=== PATIENT | female | born 1990 | race African-American/Black ===

== ENCOUNTER 2016-09-06 13:13 | Emergency (ER) | payer MEDICAID ==
[~2016-09-06] VITALS: Wt 94.0 kg
[~2016-09-06 13:13] MED LIST: ALBU2.5V3 NEB; ALBU8.5H3 INH; PRED50TA PO
[2016-09-06] MEDS ORDERED: IPRATROPIUM (NEB) 0.5 MG/2.5 ML AMP NEB STA (14:59)
[2016-09-06] MEDS ORDERED: ALBUTEROL 0.083% (NEB) 2.5 MG/3 ML AMP NEB STA (14:59)
[2016-09-06] MEDS ORDERED: predniSONE 20 MG TAB PO ONE (15:00)
--- NOTE | 2016-09-06 16:00 | ERD ---
ER Documentation Chief Complaint Date/Time DATE: 09/06/16 TIME: 15:57 Chief Complaint shortness of breath HPI 26 yo female with a history of asthma comes emergency department with shortness of breath and dizziness that started this afternoon. Patient states that this feels like her normal shortness of breath symptoms when her asthma exacerbates. She try to give herself a breathing, this afternoon but she felt very dizzy. She states that she ate a small breakfast this morning. She states that she gave herself a breathing treatment with albuterol and states that the dizziness worsened. Has not had any syncope, chest pain, shortness of breath. Patient states that she does have a history of anemia however she got her blood work checked about 2 weeks ago and she reports that everything was normal. She has not had any injuries, or abnormal bleeding. ROS All systems reviewed and are negative except as per history of present illness. Medications Home Meds Active Scripts Albuterol Sulfate* (Albuterol Sulfate* Neb) 0.083%-3 Ml Neb, 2.5 MG NEB Q4 Y for SHORTNESS OF BREATH, #30 EA Prov:DIANN LUGO PA-C 09/06/16 Prednisone* (Prednisone*) 20 Mg Tab, 40 MG PO DAILY for 4 Days, TAB Prov:DIANN LUGO PA-C 09/06/16 Albuterol Sulfate* (Proair HFA*) 8.5 Gm Hfa.aer.ad, 2 PUFF INH Q4, #1 INHALER Prov:DINESH ROBLES PA-C 06/06/15 Albuterol Sulfate* (Albuterol Sulfate* Neb) 0.083%-3 Ml Neb, 1.25 MG NEB Q3H Y for WHEEZING AND SOB, #30 VIAL Prov:DINESH ROBLES PA-C 06/06/15 Prednisone* (Prednisone*) 50 Mg Tablet, 50 MG PO DAILY for 5 Days, TAB Prov:DINESH ROBLES PA-C 06/06/15 Allergies Allergies: Coded Allergies: No Known Allergy (Unverified , 06/06/15) PMhx/Soc History of Surgery: No Anesthesia Reaction: No Hx Respiratory Disorders: Yes (Asthma) Hx Cardiac Disorders: No Hx Psychiatric Problems: No Hx Alcohol Use: No Hx Substance Use: No Hx Tobacco Use: No Smoking Status: Never smoker Physical Exam Vitals Vital Signs Date Time Temp Pulse Resp B/P Pulse Ox O2 Delivery O2 Flow Rate FiO2 6/12/17 15:13 105 18 99 21 09/06/16 13:17 99.2 105 18 145/76 99 Physical Exam General: Well-developed, well-nourished. The patient appears in no acute distress. HEENT: Head is normocephalic, atraumatic. No scleral icterus. Neck: Supple. Nontender. Lungs: Clear to auscultation. Normal air movement. Heart: Regular rate and rhythm. S1 and S2 are normal. No murmurs, gallops, or rubs. Abdomen: Nondistended. Extremities: No clubbing or cyanosis. Moving extremities x 4. No weakness. Neurologic: Alert and oriented 3. No focal deficits. Normal speech and gait. Cranial nerves II 12 grossly intact. Skin: Normal turgor. No rash or lesions. Results 24 hrs Laboratory Tests Test 09/06/16 15:28 09/06/16 16:23 Bedside Glucose 64mg/dL 92mg/dL Current Medications Medications (Trade) Dose Ordered Sig/Santy Route PRN Reason Start Time Stop Time Status Last Admin Dose Admin Albuterol (Proventil 0.083% (Neb)) 5 mg ONCE STAT NEB 09/06/16 14:59 09/06/16 15:01 DC 09/06/16 15:07 Ipratropium [place] (Atrovent 0.02% (Neb)) 1.5 mg ONCE STAT NEB 09/06/16 14:59 09/06/16 15:01 DC 09/06/16 15:07 Prednisone (Prednisone) 40 mg ONCE ONCE PO 09/06/16 15:00 09/06/16 15:01 DC 09/06/16 15:04 Procedures/MDM ED course: Patient was given a breathing treatment albuterol 5 mg neb, Atrovent 0.5 mg, prednisone 40 mg by mouth. Accu-Chek, blood sugar was 64. She was given juice in the emergency department , repeat Accu-Chek was 92. MDM: 26-year-old female comes in with shortness breath, this appears to be an acute asthma exacerbation, she also has low blood sugar at this time Accu-Chek was 64. She was given juice in the emergency department and reports to be feeling much better. I doubt pulmonary embolus, dissection, acute coronary syndrome, anemia, electrolyte abnormalities, sepsis. Departure Diagnosis: Primary Impression: Asthma Additional Impression: Hypoglycemia Condition: Good DIANN LUGO PA-C Sep 06, 2016 16:00
[2016-09-06] MEDS ORDERED: ALBU2.5V3 NEB (16:08)
[2016-09-06] MEDS ORDERED: PRED20TA PO (16:08)
== END 2016-09-06 17:12 | disposition home or self-care (01) ==
LOC: FTE 13:13
DX: J45.901 Unspecified asthma with (acute) exacerbation (principal); E16.2 Hypoglycemia, unspecified
CPT/HCPCS: 82962; 94644; J7512; Z7610

== ENCOUNTER 2016-12-25 00:10 | Emergency (ER) | payer SELFPAY ==
[~2016-12-25] VITALS: Ht 162.6 cm; Wt 95.0 kg
[~2016-12-25 00:10] MED LIST changes: +PRED20TA PO
[2016-12-25 00:19] VITALS: Ht 162.6 cm; Wt 95.0 kg
--- NOTE | 2016-12-25 01:50 | ERD ---
ER Documentation Chief Complaint Date/Time DATE: 12/25/16 TIME: 01:49 Chief Complaint scaterred body rashes HPI 26-year-old female presents with rash on her bilateral armpits that she has had for 1 week. She states it is very itchy and she states she has been putting hydrocortisone cream but she thinks that made it worse. No fever. No swelling of her lips or tongue. No difficulty breathing. ROS All systems reviewed and are negative except as per history of present illness. Medications Home Meds Active Scripts Albuterol Sulfate* (Albuterol Sulfate* Neb) 0.083%-3 Ml Neb, 2.5 MG NEB Q4 Y for SHORTNESS OF BREATH, #30 EA Prov:DIANN LUGO PA-C 09/06/16 Prednisone* (Prednisone*) 20 Mg Tab, 40 MG PO DAILY for 4 Days, TAB Prov:DIANN LUGO PA-C 09/06/16 Albuterol Sulfate* (Proair HFA*) 8.5 Gm Hfa.aer.ad, 2 PUFF INH Q4, #1 INHALER Prov:DINESH ROBLES PA-C 06/06/15 Albuterol Sulfate* (Albuterol Sulfate* Neb) 0.083%-3 Ml Neb, 1.25 MG NEB Q3H Y for WHEEZING AND SOB, #30 VIAL Prov:DINESH ROBLES PA-C 06/06/15 Prednisone* (Prednisone*) 50 Mg Tablet, 50 MG PO DAILY for 5 Days, TAB Prov:DINESH ROBLES PA-C 06/06/15 Allergies Allergies: Coded Allergies: No Known Allergy (Unverified , 06/06/15) PMhx/Soc History of Surgery: No Anesthesia Reaction: No Hx Respiratory Disorders: Yes (Asthma) Hx Cardiac Disorders: No Hx Psychiatric Problems: No Hx Alcohol Use: No Hx Substance Use: No Hx Tobacco Use: No Smoking Status: Never smoker FmHx Family History: No diabetes Physical Exam Vitals Vital Signs Date Time Temp Pulse Resp B/P Pulse Ox O2 Delivery O2 Flow Rate FiO2 12/25/16 00:19 97.8 95 20 131/81 100 Physical Exam Const: [] Head: Atraumatic Eyes: Normal Conjunctiva ENT: Normal External Ears, Nose and Mouth. Neck: Full range of motion..~ No meningismus. Resp: Clear to auscultation bilaterally Cardio: Regular rate and rhythm, no murmurs Abd: Soft, non tender, non distended. Normal bowel sounds Skin: Bilateral axillary fold have macular papular rash with thickened skin consistent with hives Results 24 hrs Current Medications Medications (Trade) Dose Ordered Sig/Santy Route PRN Reason Start Time Stop Time Status Last Admin Dose Admin Prednisone (Prednisone) 60 mg ONCE ONCE PO 12/25/16 02:00 12/25/16 02:01 Procedures/MDM Patient presents with eczema on her bilateral axillary folds. Her vital signs are normal. She was given a dose of prednisone here and discharged with a short course of prednisone and Benadryl. Patient counseled regarding my diagnostic impression and care plan. Prior to discharge all questions answered. Pt agrees with treatment plan and understands strict return precautions. Pt is instructed to follow up with primary care provider within 24-48 hours. Precautionary instructions provided including instructions to return to the ER if not improving or for any worsening or changing symptoms or concerns. Departure Diagnosis: Primary Impression: Rash Condition: Stable DINESH ROBLES PA-C Dec 25, 2016 01:50
[2016-12-25] MEDS ORDERED: BEN25 PO (01:51)
[2016-12-25] MEDS ORDERED: PRED50TA PO (01:51)
[2016-12-25] MEDS ORDERED: predniSONE 20 MG TAB PO ONE (02:00)
== END 2016-12-25 02:00 | disposition home or self-care (01) ==
LOC: FTE 00:10
DX: R21 Rash and other nonspecific skin eruption (principal); J45.909 Unspecified asthma, uncomplicated
CPT/HCPCS: 99283; J7512

== ENCOUNTER 2016-12-27 17:47 | Emergency (ER) | payer SELFPAY ==
[~2016-12-27] VITALS: Ht 152.4 cm; Wt 80.0 kg
[~2016-12-27 17:47] MED LIST changes: +BEN25 PO
[2016-12-27 17:49] VITALS: Ht 152.4 cm; Wt 80.0 kg
[2016-12-27] MEDS ORDERED: CLOT30CR24 TOP (20:22)
[2016-12-27] MEDS ORDERED: CEPH-443 PO (20:23)
--- NOTE | 2016-12-27 20:39 | ERD ---
ER Documentation Chief Complaint Date/Time DATE: 12/27/16 TIME: 20:36 Chief Complaint RASH X 2 WEEKS HPI This is a 26-year-old female that presents to the ER with a rash for the last 2 weeks. Patient is located under the patient's arms under her breast and is now extending into her back. Patient states that earlier today the rash was losing and that it smells very bad. Rash is very itchy and red. She denies any fevers or chills. Patient Has not traveled anywhere. ROS 12 point review of systems was done, all negative except per HPI. Medications Home Meds Active Scripts Cephalexin* (Keflex*) 500 Mg Capsule, 500 MG PO BID for 7 Days, CAP Prov:СВЕТЛАНА CALVERT 12/27/16 Clotrimazole* (Clotrimazole* AF) 1% - 30 Gm Cream.gm., 1 APPLIC TOP BID for 7 Days, TUB Prov:СВЕТЛАНА CALVERT 12/27/16 Prednisone* (Prednisone*) 50 Mg Tablet, 50 MG PO DAILY, #4 TAB Prov:DINESH ROBLES PA-C 12/25/16 Diphenhydramine Hcl* (Benadryl*) 25 Mg Cap, 25 MG PO Q6, #30 CAP Prov:DINESH ROBLES PA-C 12/25/16 Albuterol Sulfate* (Albuterol Sulfate* Neb) 0.083%-3 Ml Neb, 2.5 MG NEB Q4 Y for SHORTNESS OF BREATH, #30 EA Prov:DIANN LUGO PA-C 09/06/16 Prednisone* (Prednisone*) 20 Mg Tab, 40 MG PO DAILY for 4 Days, TAB Prov:DIANN LUGO PA-C 09/06/16 Albuterol Sulfate* (Proair HFA*) 8.5 Gm Hfa.aer.ad, 2 PUFF INH Q4, #1 INHALER Prov:DINESH ROBLES PA-C 06/06/15 Albuterol Sulfate* (Albuterol Sulfate* Neb) 0.083%-3 Ml Neb, 1.25 MG NEB Q3H Y for WHEEZING AND SOB, #30 VIAL Prov:DINESH ROBLES PA-C 06/06/15 Prednisone* (Prednisone*) 50 Mg Tablet, 50 MG PO DAILY for 5 Days, TAB Prov:DINESH ROBLES PA-C 06/06/15 Allergies Allergies: Coded Allergies: No Known Allergy (Unverified , 06/06/15) PMhx/Soc Medical and Surgical Hx: pt denies Medical Hx History of Surgery: No Anesthesia Reaction: No Hx Neurological Disorder: No Hx Respiratory Disorders: Yes (Asthma) Hx Cardiac Disorders: No Hx Psychiatric Problems: No Hx Miscellaneous Medical Probl: No Hx Alcohol Use: Yes Hx Substance Use: No Hx Tobacco Use: No Smoking Status: Never smoker Physical Exam Vitals Vital Signs Date Time Temp Pulse Resp B/P Pulse Ox O2 Delivery O2 Flow Rate FiO2 12/27/16 17:49 98.2 84 18 148/84 99 Physical Exam GENERAL: The patient is well developed and appropriate for usual state of health , in no apparent distress. HEENT: Atraumatic. Also involvement. CHEST: Clear to auscultation bilaterally. There are no rales, wheezes or rhonchi. HEART: Regular rate and rhythm. No murmurs, clicks, rubs or gallops. NEURO: Alert and oriented. SKIN: beefy Red rash with satellite lesions under arms, breasts and back. Procedures/MDM Differential Diagnosis: dermatitis, allergic urticaria, viral exanthem, insect bite, fungal infection ,viral exanthem, hand foot mouth disease, , impetigo, cellulitis, abscess, gayle laisha syndrome, meningocemia, necrotizing fasciitis, myositis. Clinical suspicicion for necrotizing fasciitis or myositis is low. There are no skip lesions or pain away from the site of the rash. Clinical suspicion for gayle laisha syndrome is low. There is not history new medication use or mucosal involvement. Patient likely has a fungal infection with a superimposed bacterial infection as there was no wheezing seen today. Patient will be sent with clotrimazole with Keflex. She is to follow-up with her primary care doctor within 1-2 days return to ER if symptoms worsen. My medical decision making shared with the patient she understands and agrees with plan. Departure Diagnosis: Primary Impression: Rash Condition: Stable Patient Instructions: Self-Care for Skin Rashes Additional Instructions: Call your primary care doctor TOMORROW for an appointment during the next 1-2 days.See the doctor sooner or return here if your condition worsens before your appointment time. СВЕТЛАНА CALVERT Dec 27, 2016 20:39
== END 2016-12-27 20:45 | disposition home or self-care (01) ==
LOC: FTE 17:47
DX: R21 Rash and other nonspecific skin eruption (principal); J45.909 Unspecified asthma, uncomplicated
CPT/HCPCS: 99283

== ENCOUNTER 2017-05-02 18:07 | Emergency (ER) | END 2017-05-03 00:59 | disposition home or self-care (01) ==

== ENCOUNTER 2017-09-09 21:14 | Emergency (ER) | END 2017-09-10 01:25 | disposition home or self-care (01) ==

== ENCOUNTER 2017-12-26 18:26 | Emergency (ER) | END 2017-12-26 23:43 | disposition home or self-care (01) ==